=== PATIENT | male | born 1975 | race Hispanic/Latino ===

== ENCOUNTER 2023-01-12 07:11 | Day surgery (SDC) | payer OTHER ==
[~2023-01-12] VITALS: Ht 167.6 cm; Wt 86.2 kg
[2023-01-12 07:55] VITALS: BP 116/80
[2023-01-12] MEDS ORDERED: MIDAZOLAM HCL 1 MG/ML 2ML VIAL ONE (08:05)
[2023-01-12] MEDS ORDERED: PROPOFOL 10 MG/ML 20ML VIAL IV ONE ×2 (08:06→08:09)
[2023-01-12] MEDS ORDERED: LIDOCAINE PF 100MG/5ML (2%) SYRINGE 5ML ONE (08:06)
[2023-01-12] MEDS ORDERED: LOSA50TA64 PO (08:38)
== END 2023-01-12 09:16 | disposition home or self-care (01) ==
LOC: ENDO 07:11
PROVIDERS: ATTEND Internal Medicine
DX: Z12.11 Encounter for screening for malignant neoplasm of colon (principal); Z20.822 Contact with and (suspected) exposure to COVID-19; K63.5 Polyp of colon; R14.0 Abdominal distension (gaseous); K21.9 Gastro-esophageal reflux disease without esophagitis; K31.89 Other diseases of stomach and duodenum; R14.2 Eructation; I10 Essential (primary) hypertension; E78.5 Hyperlipidemia, unspecified; Z87.891 Personal history of nicotine dependence; Z90.49 Acquired absence of other specified parts of digestive tract; Z79.899 Other long term (current) drug therapy
CPT/HCPCS: 87635; 43239; 45380; J2001; J2250; J2704 ×2; A4620; A4215 ×2; A4223; A4657 ×3; A7002; A4222; A4221; A4663; J7030; A4606

== ENCOUNTER → 2024-11-07 | Outpatient (CLI) | payer OTHER ==
[~2024-11-07] MED LIST: LOSA50TA64 PO
--- NOTE | 2024-11-07 10:44 | HMCIMG ---
Exam Type: US ABDOMINAL RUQ\E\LTD Clinical Information: ruq pain Comparison: None Findings: The liver shows normal echogenicity and is otherwise unremarkable. The liver measures less than 16 cm in length. Doppler evaluation shows patent portal and hepatic veins. The gallbladder shows an intraluminal polyp of the anterior wall measuring 4 mm. The gallbladder wall thickness is 2 mm. No bile duct dilatation is noted. The common bile duct measures 6 mm. The right kidney measures 9.6 x 5 cm. The right kidney is normal in size and echogenicity. No hydronephrosis or renal calculi are seen. There are no renal masses. The pancreas is suboptimally visualized. IMPRESSION: Gallbladder polyp.
== END | disposition home or self-care (01) ==
LOC: RAH 08:03
PROVIDERS: ATTEND Family Medicine
DX: K82.4 Cholesterolosis of gallbladder (principal); R10.11 Right upper quadrant pain
CPT/HCPCS: 76705